=== PATIENT | female | born 1995 | race Caucasian/White ===

== ENCOUNTER 2018-12-25 15:57 | Emergency (ER) | payer SELFPAY ==
[~2018-12-25] VITALS: Ht 157.5 cm; Wt 46.8 kg
[2018-12-25 16:05] VITALS: BP 122/58; PULSE 103; RESP 18; Ht 157.5 cm; Wt 46.8 kg
== END 2018-12-25 17:10 | disposition left against medical advice (07) ==
LOC: FTE 15:57
DX: Z53.21 Procedure and treatment not carried out due to patient leaving prior to being seen by health care provider (principal)